=== PATIENT | male | born 1990 | race Caucasian/White ===

== ENCOUNTER 2017-10-03 00:21 | Emergency (ER) | payer BC, OTHER ==
[~2017-10-03] VITALS: Ht 177.8 cm; Wt 120.2 kg
[2017-10-03 00:38] VITALS: BP 134/89
== END 2017-10-03 09:01 | disposition left against medical advice (07) ==
LOC: ER 00:24
DX: S61.212A Laceration without foreign body of right middle finger without damage to nail, initial encounter (principal); Z53.21 Procedure and treatment not carried out due to patient leaving prior to being seen by health care provider; W25.XXXA Contact with sharp glass, initial encounter; Y93.89 Activity, other specified; Y99.0 Civilian activity done for income or pay; Y92.89 Other specified places as the place of occurrence of the external cause
CPT/HCPCS: 73140